=== PATIENT | male | born 1945 | race Caucasian/White ===

== ENCOUNTER 2016-12-05 12:53 | Inpatient (IN) | payer MEDICARE, MEDICAID ==
[~2016-12-05 12:53] MED LIST: ALBUTEROL SULF8.5 GM IH; ALBUTEROL0.83 MG/ML INH; ALPRAZOLAM0.25 M2 PO; ANDROGEL2.5 G1 TD; ANEXSIA 7.5/3251 TAB PO; ASPIRIN325 MG PO; ATENOLOL50 MG; ATIVAN1 MG PO; BENADRYL25 MG PO; CARAFATE1 G PO; CARAFATE1 GM/10 M1 PO; CARVEDILOL12.5 MG PO; CELEXA20 MG; CELEXA40 MG PO; CHANTIX; CHLORASEPTIC T180 ML MM; CILOSTAZOL100 MG; CILOSTAZOL100 MG PO; COLACE100 MG PO; COREG12.5 M1 PO; COREG12.5 MG PO; COUMADIN5 MG PO; COUMADIN7.5 MG PO; CPAP; CYCLOBENZAPRINE10 M1 PO; DULCOLAX10 MG/SUPP RC; DUONEB 2.5-0.5 M3 ML IH; FOLIC ACID PO; FOLIC ACID1 M1 PO; FOLIC ACID1 MG PO; FUROSEMIDE40 MG PO; FUROSEMIDE80 M1 PO; HYDROCODONE/APA1 TAB PO; IBUPROFEN200 M3 PO; LASIX40 M1 PO; LEVAQUIN750 MG PO; LEVOTHROID112 MCG PO; LEVOTHROID175 MCG; LEVOTHYROXINE112 MC3 PO; LEVOTHYROXINE75 MCG PO; LIDODERM30 EA TP; LOVENOX40 MG/0.4 SQ; METHADONE10 MG/TAB PO; MILK OF MA800 MG/5 M PO; MIRALAX17 G1 PO; MIRALAX17 GM PO; MOTRIN600 MG PO; MULTIVITAMIN1 TAB PO; MULTIVITAMINS1 EAC6 PO; NEXIUM40 M1 PO; NEXIUM40 MG PO; NORCO 5/325 TAB1 TAB PO; NORTRIPTYLINE H25 M1 PO; NORVASC10 M2 PO; NORVASC10 MG; NORVASC10 MG PO; OXYCODONE/APAP PO; OXYCONTIN20 M1 PO; OXYCONTIN20 MG PO; OXYCONTIN30 M1 PO; OXYGEN; PERCOCET 5-3251 EACH PO; PERCOCET 5/3251 TAB PO; PERCOCET 7.5-31 EAC1 PO; PLAVIX75 MG PO; PROZAC40 MG PO; SIMVASTATIN20 M1 PO; SIMVASTATIN20 MG PO; SIMVASTATIN40 MG PO; SPIRIVA18 MC1 IH; SPIRIVA18 MCG IH; SYMBICORT 160-1 PUFF INH; SYMBICORT 16010.2 GM IH; SYNTHROID75 MCG PO; TAB A VITE1 EAC1 PO; TRAZODONE HCL50 M1 PO; TRAZODONE50 MG PO; TYLENOL PO; TYLENOL WITH C1 EACH PO; TYLENOL325 MG PO; VANCOMYCIN1 GM/VIA1 IV; VANCOMYCIN1.25 GM/21 IV; VITAMIN B-1100 M3 PO; VITAMIN B1100 MG PO; VITAMIN B12 PO; VITAMIN B12-FO1 EAC1 PO; VITAMIN B121000 MCG PO; VITAMIN D35000 UNIT PO; VITAMIN D5000 UNI1 PO; VITAMIN D5000 UNIT PO; XANAX0.25 M1 PO; XANAX0.25 MG PO; ZESTRIL20 M3 PO; ZESTRIL40 MG PO; [UNRECOGNIZED DRUG - REMARK]
[2016-12-05] MEDS ORDERED: OXYCONTIN40 M2 PO (14:01)
[2016-12-05] MEDS ORDERED: [UNRECOGNIZED DRUG - CODE] PO (14:02)
[2016-12-05] MEDS ORDERED: THIAMINE HCL250 MG PO (14:02)
[2016-12-05] MEDS ORDERED: ASPIRIN325 M3 PO (14:04)
[2016-12-05] MEDS ORDERED: WELLBUTRIN XL150 M1 PO (14:04)
[2016-12-05] MEDS ORDERED: MIRTAZAPINE30 M2 PO (14:04)
[2016-12-05] MEDS ORDERED: COLACE100 M1 PO (14:05)
[2016-12-05] MEDS ORDERED: LIPITOR80 M1 PO (14:06)
[2016-12-05] MEDS ORDERED: INCRUSE ELLI62.5 MCG INH (14:06)
[2016-12-05] MEDS ORDERED: AMITIZA24 MC1 PO (14:07)
[2016-12-05] MEDS ORDERED: MOVANTIK25 MG PO (14:07)
[2016-12-05] MEDS ORDERED: ULTRAM50 M1 PO (14:07)
[2016-12-05] MEDS ORDERED: PROAIR HFA8.5 GM INH (14:08)
[2016-12-05 14:57] LABS: BASO % 0.3 % (0-2); EOS % 4.6 % (0-7); EOSINOPHIL ABSOLUTE COUNT 0.3 tho/cmm (0.0-0.7); HCT-HEMATOCRIT 35.7 % (36.0-53.5); HGB-HEMOGLOBIN 12.6 gm/dl (13.5-17.0); IMMATURE GRANULOCYTES ABSOLUTE 0.02 tho/cmm (0-0.03); IMMATURE GRANULOCYTES PERCENT 0.3 % (0-0.3); LYMPH % 7.8 % (20-45); LYMPH ABSOLUTE COUNT 0.5 tho/cmm (0.8-4.5); MCH (MEAN CORPUSCULAR HGB) 30.8 pg (28.0-32.0); MCHC MEAN CORPUSCULAR HGB CONC 35.3 % (32.0-36.0); MCV (MEAN CELL VOLUME) 87.3 fl (82.0-96.0); MEAN PLATELET VOLUME 9.6 cmc (9.4-12.4); MONO % 16.1 % (0-12); MONOCYTE ABSOLUTE COUNT 1.1 tho/cmm (0.0-1.2); NEUTROPHIL ABSOLUTE COUNT 4.9 tho/cmm (1.6-8.0); NEUTROPHIL-AUTOMATED 4.9 tho/cmm (1.6-8.0); NEUTROPHILS % 70.9 % (40-80); PLATELET COUNT 203 tho/cmm (150-450); RED BLOOD COUNT 4.09 mil/cmm (4.40-5.70); RED CELL DISTRIBUTION WIDTH 13.9 % (12.4-16.4); WHITE BLOOD COUNT 6.9 tho/cmm (4.0-10.0)
[2016-12-05 15:12] LABS: ALB/GLOB RATIO 0.9 (0.8-2.0); ALBUMIN 3.2 g/dl (3.5-5.0); ALKALINE PHOSPHATASE 107 U/L (33-138); ALT/SGPT 24 U/L (12-78); ANION GAP 11 mmol/L (0-20); AST/SGOT 41 U/L (10-40); BILIRUBIN,TOTAL 0.7 mg/dl (0.0-1.5); BLOOD UREA NITROGEN 25 mg/dl (6-24); CALCIUM 8.5 mg/dl (8.5-10.5); CARBON DIOXIDE-VENOUS 29 mmol/L (22-32); CHLORIDE 85 mmol/l (96-110); CREATININE 1.06 mg/dl (0.60-1.30); GLUCOSE 126 mg/dL (70-110); POTASSIUM 4.3 mmol/L (3.7-5.1); SODIUM 121 mmol/L (135-145); eGFR VALUE FOR BLACK 81 mL/Min
[2016-12-05 15:21] LABS: URINE APPEARANCE HAZY; URINE BILIRUBIN NEGATIVE (NEG); URINE BLOOD NEGATIVE (NEG); URINE COLOR YELLOW; URINE GLUCOSE (UA) NEGATIVE (NEG); URINE KETONE NEGATIVE (NEG); URINE LEUKOCYTE ESTERASE NEGATIVE (NEG); URINE NITRITE NEGATIVE (NEG); URINE PROTEIN NEGATIVE (NEG)
[2016-12-05] MEDS ORDERED: XANAX0.25 M1 PO (16:03)
[2016-12-05 17:32] LABS: URINE SODIUM-RANDOM 7 mmol/L (20-110)
[2016-12-05 17:53] LABS: MAGNESIUM 1.1 mg/dl (1.3-2.6); PHOSPHOROUS 2.4 mg/dl (2.5-4.9)
[2016-12-05 22:11] LABS: ANION GAP 10 mmol/L (0-20); BLOOD UREA NITROGEN 22 mg/dl (6-24); CALCIUM 8.3 mg/dl (8.5-10.5); CARBON DIOXIDE-VENOUS 29 mmol/L (22-32); CHLORIDE 89 mmol/l (96-110); CREATININE 0.95 mg/dl (0.60-1.30); GLUCOSE 138 mg/dL (70-110); SODIUM 124 mmol/L (135-145); eGFR VALUE FOR BLACK >90 mL/Min
[2016-12-06 06:01] LABS: ANION GAP 10 mmol/L (0-20); BLOOD UREA NITROGEN 20 mg/dl (6-24); CALCIUM 8.5 mg/dl (8.5-10.5); CARBON DIOXIDE-VENOUS 29 mmol/L (22-32); CHLORIDE 91 mmol/l (96-110); CREATININE 0.91 mg/dl (0.60-1.30); GLUCOSE 101 mg/dL (70-110); MAGNESIUM 1.6 mg/dl (1.3-2.6); SODIUM 126 mmol/L (135-145); eGFR VALUE FOR BLACK >90 mL/Min
[2016-12-06] MEDS ORDERED: NEURONTIN300 M1 PO (10:54)
[2016-12-06] MEDS ORDERED: ACETAMINOPHEN-CO5 M1 PO (10:56)
== END 2016-12-06 18:00 | DRG 392 ==
LOC: EDMED 12:53 → EMR2 16:46 → 5WE 17:31
PROVIDERS: Internal Medicine; Physician Assistant; ADMIT Hospitalist
PROC: 5A09357 Assistance with Respiratory Ventilation, Less than 24 Consecutive Hours, Continuous Positive Airway Pressure (ICD-10-PCS; principal; 2016-12-05)
DX: K59.03 Drug induced constipation (principal); J96.11 Chronic respiratory failure with hypoxia; E22.2 Syndrome of inappropriate secretion of antidiuretic hormone; J44.9 Chronic obstructive pulmonary disease, unspecified; T40.605A Adverse effect of unspecified narcotics, initial encounter; F32.9 Major depressive disorder, single episode, unspecified; E78.5 Hyperlipidemia, unspecified; I25.10 Atherosclerotic heart disease of native coronary artery without angina pectoris; I73.9 Peripheral vascular disease, unspecified; E03.9 Hypothyroidism, unspecified; I10 Essential (primary) hypertension; G89.29 Other chronic pain; M54.5 Low back pain; Z91.81 History of falling; Z79.891 Long term (current) use of opiate analgesic; F10.20 Alcohol dependence, uncomplicated; G47.33 Obstructive sleep apnea (adult) (pediatric); Z88.0 Allergy status to penicillin; Z79.82 Long term (current) use of aspirin; F17.210 Nicotine dependence, cigarettes, uncomplicated; B19.20 Unspecified viral hepatitis C without hepatic coma; W19.XXXA Unspecified fall, initial encounter
CPT/HCPCS: G8978-GP-CJ; G8979-GP-CI; G8980-GP-CJ; J1650; J7030; P9612